=== PATIENT | male | born 1955 | race Caucasian/White ===

== ENCOUNTER 2016-11-23 12:13 | Day surgery (SDC) | payer OTHER ==
[~2016-11-23] VITALS: Ht 180.3 cm; Wt 95.0 kg
[~2016-11-23 12:13] MED LIST: 0.9% Sodium Chloride 1,000 ML IV PRN; ALBU8.5H2 INHALATION; ASPI-973 PO; ATEN50TA PO; Sodium Chloride LOK Flush 10 mL Syringe IV PRN; fentaNYL-PF 50 mCg/mL 2 mL Inj IVPUSH PRN
[2016-11-23 12:40] VITALS: BP 141/88; PULSE 78; RESP 16; O2SAT 85
[2016-11-23 13:38] VITALS: BP 128/85; PULSE 75; RESP 16; O2SAT 95
--- NOTE | 2016-11-23 23:52 | ENDO ---
[address] [address] ENDOSCOPY PROCEDURE PATIENT: LILLIAM ISLAS : 1955 MR#: [id number] ADMIT: 11/23/2016 JOB ID: [id number] DATE OF PROCEDURE: 11/23/2016 PRIMARY PROVIDER: Patricio Petit MD PROCEDURE: Colonoscopy. INDICATIONS: A 61-year-old male who reports for colon cancer screening. EQUIPMENT: [employer]. SEDATION: 1. Versed 2 mg. 2. Fentanyl 50 mcg. COMPLICATIONS: None identified. BOWEL PREPARATION: Fair. Adequate exam. PROCEDURE INFORMATION: After the risks and benefits were explained, written and verbal informed consent was obtained. The patient was brought into the endoscopy suite and placed into the left lateral decubitus position. Sedation was achieved using the above-stated medications with the addition of oxygen via nasal cannula. A digital rectal examination was accomplished. No significant pathology appreciated. The scope introduced into the rectum and advanced under direct visualization to the cecum, as identified by the appendiceal orifice and ileocecal valve. The scope was slowly withdrawn to carefully examine the mucosa for any defects or lesions. Retroflexed views were avoided in the rectum. Multiple direct views were made through the dentate line for exclusion of pathology. The colon was decompressed. The scope was removed from the patient who tolerated the procedure well. FINDINGS: Moderate diverticulosis through the left colon. No significant polyps, mass lesions, or inflammatory features identified throughout. ENDOSCOPIC DIAGNOSES: 1. Diverticulosis. 2. Otherwise, visually unremarkable colonoscopy to cecum. RECOMMENDATIONS: Repeat colonoscopy in 10 years' time, sooner should symptoms warrant.
== END 2016-11-23 23:59 | disposition home or self-care (01) ==
LOC: END 12:13
PROVIDERS: ATTEND Internal Medicine Gastroenterology
DX: Z12.11 Encounter for screening for malignant neoplasm of colon (principal); K57.30 Diverticulosis of large intestine without perforation or abscess without bleeding; Z80.0 Family history of malignant neoplasm of digestive organs; I10 Essential (primary) hypertension; J45.20 Mild intermittent asthma, uncomplicated; Z87.891 Personal history of nicotine dependence; Z79.51 Long term (current) use of inhaled steroids; Z79.82 Long term (current) use of aspirin